=== PATIENT | male | born 1965 | race Caucasian/White ===

== ENCOUNTER 2024-09-12 15:13 | Emergency (ER) | payer OTHER ==
[2024-09-12 15:48] VITALS: BP 110/80; PULSE 105; RESP 17; TEMP 98.2; BMI 30.1
[2024-09-12] MEDS ORDERED: ACETAMINOPHEN 325 MG TABLET (FP) ONE (16:36)
[2024-09-12] MEDS ORDERED: KETOROLAC TROMETHAMINE 30 MG/1 ML VIAL ONE (16:36)
[2024-09-12] MEDS ORDERED: CycloBENZAprine HCL 5 MG TABLET ONE (16:36)
[2024-09-12] MEDS ORDERED: LIDOCAINE 5% TOPICAL PATCH ONE (16:36)
[2024-09-12] MEDS: CycloBENZAprine HCL 10 MG TABLET (FP) PO ONE (17:06)
[2024-09-12] MEDS: LIDOCAINE 5% TOPICAL PATCH TP ONE (17:06)
[2024-09-12] MEDS: KETOROLAC TROMETHAMINE 30 MG/1 ML VIAL IM ONE (17:07)
[2024-09-12] MEDS: ACETAMINOPHEN 500 MG TABLET (FP) PO ONE (17:07)
[2024-09-12] MEDS: KETOROLAC TROMETHAMINE 15 MG/ML VIAL IM ONE (17:39)
[2024-09-12] MEDS ORDERED: LIDOCAINE PATCH REMOVAL MC SCH (22:00)
== END 2024-09-12 18:47 | disposition home or self-care (01) ==
LOC: FER 15:13
PROC: 3E0233Z Introduction of Anti-inflammatory into Muscle, Percutaneous Approach (ICD-10-PCS; principal; 2024-09-12)
DX: M54.50 Low back pain, unspecified (principal)
CPT/HCPCS: 96372; 99284-25